=== PATIENT | male | born 1980 | race African-American/Black ===

== ENCOUNTER 2017-04-19 01:26 | Emergency (ER) | payer OTHER ==
[~2017-04-19] VITALS: Ht 182.9 cm; Wt 83.9 kg
[2017-04-19 01:37] VITALS: BP 156/89
[2017-04-19] MEDS ORDERED: HYDR-2758 PO (02:23)
--- NOTE | 2017-04-19 02:24 | PHYS DOC ---
Past Medical History Past Medical History: No Pertinent History Past Surgical History: Other Additional Past Surgical Histo: R. THUMB Alcohol Use: None Drug Use: None Adult General Chief Complaint Chief Complaint: UPPER EXTREMITY INJURY HPI HPI 28-year-old male presenting to the emergency department today with left shoulder injury. He was walking in a parking lot when he tripped and injured his left shoulder today around 1 AM. He denies loss of consciousness but did hit his head. He denies being on blood thinners. He denies any other injuries. The pain in his left shoulder is sharp moderate intermittent and without alleviating factors. He denies any other major medical conditions. Review of systems is negative for elbow pain or wrist pain more distally. He denies chest pain shortness of breath abdominal pain numbness weakness tingling or vision changes. All other review of systems is negative unless otherwise noted in history of present illness. ED course: 28-year-old male presenting to the emergency department today with left shoulder injury after falling today. X-ray of the left shoulder obtained. X -ray shows closed left clavicle fracture. Patient was placed in a sling to follow-up with Dr. sood within the next 3 or 4 days. The patient was then discharged home in stable condition to follow up with their primary care physician over the next 2-3 days. They were to return if their symptoms worsened or if they were concerned for any reason. [id number] discharge instructions and return precautions were given. Patient's questions were answered to their satisfaction. Patient is comfortable plan. Review of Systems Review of Systems SEE ABOVE. Current Medications Current Medications Current Medications Medications (Trade) Dose Ordered Sig/[facility] Start Time Stop Time Status Last Admin Dose Admin Acetaminophen/ Hydrocodone Bitart (Lortab 5/325) 2 tab 1X ONCE 04/19/17 02:30 04/19/17 02:31 Allergies Allergies Allergies Coded Allergies Type Severity Reaction Last Updated Verified No Known Drug Allergies 04/19/17 No Physical Exam Physical Exam SEE ABOVE Constitutional: Well developed, well nourished, no acute distress, non-toxic appearance. HENT: Normocephalic, patient has mild abrasion on the left temporal region. Nontender midline neck. No abrasions lacerations or ecchymosis of the cervical thoracic or lumbar spine. bilateral external ears normal, oropharynx moist, no oral exudates, nose normal. [] Eyes: PERRLA, EOMI, conjunctiva normal, no discharge. Neck: Normal range of motion, no tenderness, supple, no stridor. Cardiovascular:Heart rate regular rhythm, no murmur [] Lungs & Thorax: Bilateral breath sounds clear to auscultation Abdomen: Bowel sounds normal, soft, no tenderness, no masses, no pulsatile masses. Skin: Warm, dry, no erythema, no rash. [] Back: No tenderness, no CVA tenderness. [] Extremities: Patient has tenderness along the left clavicle. There is no tenting of the skin. Otherwise mild pain with passive range of motion of the left shoulder. The patient has a normal neurovascular status of the left arm. Palpable pulse distally with 2 second cap refill. Normal sensory function of the hand. Normal axillary sensory nerve function. The remainder the extremities are nontender with normal range of motion and without any evidence of trauma. Neurologic: Alert and oriented X 3, normal motor function, normal sensory function, no focal deficits noted. [] Psychologic: Affect normal, judgement normal, mood normal. Current Patient Data Vital Signs Vital Signs Date Time Temp Pulse Resp B/P (MAP) Pulse Ox O2 Delivery O2 Flow Rate FiO2 04/19/17 01:37 98.0 70 16 156/89 (111) 99 Room Air 98.0 EKG EKG [] Radiology/Procedures Radiology/Procedures [] Course & Med Decision Making Course & Med Decision Making Pertinent Labs and Imaging studies reviewed. (See chart for details) [] Dragon Disclaimer Dragon Disclaimer This electronic medical record was generated, in whole or in part, using a voice recognition dictation system. Departure Departure Impression: Primary Impression: Closed left clavicular fracture Disposition: 01 HOME, SELF-CARE Condition: STABLE Referrals: NO PCP (PCP) CABRERA SOOD II, MD 3days Patient Instructions: Clavicle Fracture Additional Instructions: Thank you for allowing us to participate in your care today. Followup with your primary care physician in 3 days if your symptoms do not improve. Call your Primary Doctor tomorrow and inform them of your visit today. If you do not have a primary care provider you can ask for a list of our primary care providers. Return to the emergency department you have any new or concerning findings. This should be evaluated by the primary care physician and any necessary consulting services for continued management within a few days after discharge. Return to emergency room if you have any new or concerning symptoms including but not limited to fever, chills, nausea, vomiting, intractable pain, any new rashes, chest pain, shortness of air, uncontrolled bleeding, difficulty breathing, and/or vision loss. You may have been prescribed medication that can change in your level of thinking and ability to operate machinery. These medications include hydrocodone and Ativan. Also, Benadryl has been known to do this as well. Be sure to check with your pharmacist and ask if the medications you've prescribed can affect your level of consciousness. I recommend not operating heavy machinery or driving while on medication such as these. Scripts Hydrocodone Bit/Acetaminophen (HYDROCODONE-APAP 5-325 ) 1 Each Tablet 2 TAB PO PRN Q6HRS Y for PAIN, #20 TAB 0 Refills Be careful as this medication may cause you to be drowsy or tired. Do not drive on this medication. Prov: DMITRY LEVY MD 04/19/17 DMITRY LEVY MD Apr 19, 2017 02:24
[2017-04-19] MEDS ORDERED: HYDROcodone/APAP 5/325MG 1 TAB TABLET PO ONE (02:30)
--- NOTE | 2017-04-19 07:34 | RAD ---
Left shoulder, 3 views, 04/19/2017: History: Pain The glenohumeral articulation is unremarkable. There is abrupt angulation of the left clavicle just distal to its midpoint compatible with a nondisplaced fracture. An acute fracture line is not clearly seen, however, it is suspected that this is a recent fracture. Clinical correlation is suggested. No other fracture or dislocation is evident. IMPRESSION: Left clavicular fracture
== END 2017-04-19 02:43 | disposition home or self-care (01) ==
LOC: ER 01:26
DX: S42.002A Fracture of unspecified part of left clavicle, initial encounter for closed fracture (principal); W01.0XXA Fall on same level from slipping, tripping and stumbling without subsequent striking against object, initial encounter; Y93.89 Activity, other specified; Y99.8 Other external cause status; Y92.89 Other specified places as the place of occurrence of the external cause
CPT/HCPCS: 29240; 73030; 99284-25